=== PATIENT | female | born 1990 | race Caucasian/White ===

== ENCOUNTER 2020-05-10 06:13 | Day surgery (SDC) | payer OTHER ==
[~2020-05-10] VITALS: Ht 157.5 cm; Wt 90.7 kg
[2020-05-10 06:43] VITALS: BP 121/70
[2020-05-10 10:49] VITALS: BP 123/67
== END 2020-05-10 10:40 | disposition home or self-care (01) ==
LOC: DS 06:13 → OR 07:30 → DS 07:30
PROVIDERS: ATTEND Obstetrics & Gynecology
DX: D06.9 Carcinoma in situ of cervix, unspecified (principal); I10 Essential (primary) hypertension; Z20.828 Contact with and (suspected) exposure to other viral communicable diseases
CPT/HCPCS: C1758; J2250; J2405; J2704; J3010; J7120; U0003-CS